=== PATIENT | male | born 1940 | race Caucasian/White ===

== ENCOUNTER 2022-07-18 14:22 | Inpatient (IN) | payer MEDICARE ==
[2022-07-18 14:54] LABS: #Monocytes 0.6 10x3/uL (0.0-1.1); #Neutrophils 5.4 10x3/uL (1.5-8.4); %Basophils 0.2 % (0.0-2.0); %Eosinophils 0.2 % (0.0-6.0); %Lymphocytes 5.1 % (18.0-47.0); %Monocytes 8.9 % (0.0-10.0); %Neutrophils 85.1 % (40.0-75.0); Hemoglobin 8.5 g/dL (13.5-17.5); Mean Corpuscular HGB CONC 32.7 g/dL (32.0-36.0); Mean Corpuscular Hemoglobin 30.4 pg (27.0-33.0); Mean Corpuscular Volume 92.9 fl (81.2-95.1); Mean Platelet Volume 11.2 fl (7.4-10.4); Platelet Count 176 10x3/uL (150-450); White Blood Cell (WBC) Count 6.3 10x3/uL (3.5-10.5)
[2022-07-18] MEDS ORDERED: Aspirin Chewable 81 MG TAB ONE (15:30)
[2022-07-18 15:35] LABS: ALT (SGPT) 12 U/L (8-55); AST (SGOT) 44 U/L (5-34); Albumin 3.9 g/dL (3.4-4.8); Alkaline Phosphatase 25 U/L (40-110); Anion Gap 21 mmol/L (10-20); BUN (Urea Nitrogen) 62 mg/dL (8.4-25.7); Bilirubin, Total 0.5 mg/dL (0.2-1.2); Calc. Creatinine Clearance 0 mL/min (70-130); Calcium 9.1 mg/dL (7.8-10.44); Carbon Dioxide 16 mmol/L (23-31); Chloride 107 mmol/L (98-107); Estimated GFR 15; Globulin 2.9 g/dL (2.4-3.5); Glucose 132 mg/dL (83-110); Potassium 5.3 mmol/L (3.5-5.1); Protein, Total 6.8 g/dL (5.8-8.1); Sodium 139 mmol/L (136-145)
[2022-07-18 15:45] LABS: CKMB 9.3 ng/mL (0-6.6)
[2022-07-18] MEDS ORDERED: Furosemide 40 MG/4 ML VIAL ONE (15:59)
[2022-07-18] MEDS ORDERED: Ondansetron ODT 4 MG TAB PO PRN (16:18)
[2022-07-18] MEDS ORDERED: Acetaminophen 325 MG TAB PO PRN (16:18)
[2022-07-18] MEDS ORDERED: Ondansetron PF 4 MG/2 ML Vial IVP PRN (16:18)
[2022-07-18 16:41] LABS: Magnesium 2.5 mg/dL (1.6-2.6)
[2022-07-18] MEDS ORDERED: Lidocaine 1% PF 5 ML VIAL ONE (19:37)
[2022-07-18] MEDS: hydrALAZINE 25 MG TAB PO SCH (21:15)
[2022-07-19 03:43] LABS: #Monocytes 0.7 10x3/uL (0.0-1.1); #Neutrophils 4.3 10x3/uL (1.5-8.4); %Basophils 0.2 % (0.0-2.0); %Eosinophils 0.4 % (0.0-6.0); Hemoglobin 7.7 g/dL (13.5-17.5); Mean Corpuscular HGB CONC 33.8 g/dL (32.0-36.0); Mean Corpuscular Hemoglobin 30.6 pg (27.0-33.0); Mean Corpuscular Volume 90.5 fl (81.2-95.1); Mean Platelet Volume 11.1 fl (7.4-10.4); Platelet Count 161 10x3/uL (150-450); RBC Distribution Width 12.8 % (11.5-14.5); Red Blood Cell (RBC) Count 2.52 10x6/uL (4.32-5.72); White Blood Cell (WBC) Count 5.5 10x3/uL (3.5-10.5)
[2022-07-19 04:01] LABS: ALT (SGPT) 13 U/L (8-55); AST (SGOT) 48 U/L (5-34); Albumin 3.7 g/dL (3.4-4.8); Alkaline Phosphatase 24 U/L (40-110); Anion Gap 18 mmol/L (10-20); BUN (Urea Nitrogen) 28 mg/dL (8.4-25.7); Bilirubin, Total 0.7 mg/dL (0.2-1.2); Calc. Creatinine Clearance 0 mL/min (70-130); Calcium 9.1 mg/dL (7.8-10.44); Carbon Dioxide 22 mmol/L (23-31); Chloride 102 mmol/L (98-107); Estimated GFR 31; Globulin 3.1 g/dL (2.4-3.5); Glucose 76 mg/dL (83-110); Potassium 3.8 mmol/L (3.5-5.1); Protein, Total 6.8 g/dL (5.8-8.1); Sodium 138 mmol/L (136-145)
[2022-07-19] MEDS: Mirtazapine 15 MG TAB PO SCH (10:09)
[2022-07-19] MEDS: hydrALAZINE 25 MG TAB PO SCH ×3 (10:09→21:43)
[2022-07-19] MEDS: Aspirin Chewable 81 MG TAB PO SCH (10:10)
[2022-07-19] MEDS: Amlodipine 10 MG TAB PO SCH (10:10)
[2022-07-19] MEDS: Furosemide 40 MG/4 ML VIAL SLOW IVP SCH ×2 (10:10→16:58)
[2022-07-19] MEDS: Fenofibrate Nanocrystallized 145 MG TAB PO SCH (12:51)
[2022-07-19] MEDS: Doxazosin 2 MG TAB PO SCH (12:51)
[2022-07-19 14:24] LABS: HBSAB Concentration Less than 8.00 mIU/mL; HBSAg Index 0.26 S/CO (0-0.99); Hep B Core Total Ab Non-Reactive (NonReactive); Hep B Core Total Index 0.18 S/CO (0-0.79); Hep B Surf AB Non-Reactive (NonReactive); Hep B Surf Ag Non-Reactive S/CO (NonReactive); Hep C IgG Ab Non-Reactive (NonReactive); Hep C Index 0.24 S/CO (0-0.79)
[2022-07-20 04:17] LABS: #Monocytes 0.6 10x3/uL (0.0-1.1); #Neutrophils 3.8 10x3/uL (1.5-8.4); %Basophils 0.4 % (0.0-2.0); %Eosinophils 0.8 % (0.0-6.0); %Lymphocytes 12.4 % (18.0-47.0); %Monocytes 12.2 % (0.0-10.0); %Neutrophils 73.8 % (40.0-75.0); Hemoglobin 8.1 g/dL (13.5-17.5); Mean Corpuscular HGB CONC 32.8 g/dL (32.0-36.0); Mean Corpuscular Hemoglobin 30.2 pg (27.0-33.0); Mean Corpuscular Volume 92.2 fl (81.2-95.1); Mean Platelet Volume 11.2 fl (7.4-10.4); Platelet Count 176 10x3/uL (150-450); RBC Distribution Width 12.8 % (11.5-14.5); Red Blood Cell (RBC) Count 2.68 10x6/uL (4.32-5.72); White Blood Cell (WBC) Count 5.1 10x3/uL (3.5-10.5)
[2022-07-20 04:37] LABS: ALT (SGPT) 15 U/L (8-55); AST (SGOT) 62 U/L (5-34); Albumin 3.4 g/dL (3.4-4.8); Alkaline Phosphatase 26 U/L (40-110); Anion Gap 17 mmol/L (10-20); BUN (Urea Nitrogen) 19 mg/dL (8.4-25.7); Bilirubin, Total 0.8 mg/dL (0.2-1.2); Calc. Creatinine Clearance 24 mL/min (70-130); Calcium 8.5 mg/dL (7.8-10.44); Carbon Dioxide 24 mmol/L (23-31); Chloride 101 mmol/L (98-107); Estimated GFR 34; Globulin 2.5 g/dL (2.4-3.5); Glucose 74 mg/dL (83-110); Potassium 3.9 mmol/L (3.5-5.1); Protein, Total 5.9 g/dL (5.8-8.1); Sodium 138 mmol/L (136-145)
[2022-07-20 05:11] LABS: CKMB 7.4 ng/mL (0-6.6)
[2022-07-20] MEDS: Furosemide 40 MG/4 ML VIAL SLOW IVP SCH ×2 (06:23→14:46)
[2022-07-20] MEDS: Mirtazapine 15 MG TAB PO SCH (09:06)
[2022-07-20] MEDS: hydrALAZINE 25 MG TAB PO SCH ×2 (09:06→14:43)
[2022-07-20] MEDS: Aspirin Chewable 81 MG TAB PO SCH (09:06)
[2022-07-20] MEDS: Amlodipine 10 MG TAB PO SCH (09:07)
[2022-07-20] MEDS: Doxazosin 2 MG TAB PO SCH (09:08)
[2022-07-20] MEDS: Fenofibrate Nanocrystallized 145 MG TAB PO SCH (09:08)
[2022-07-20 11:35] VITALS: BMI 19.3
[2022-07-20 17:33] VITALS: BP 126/59; TEMP 98
== END 2022-07-20 17:30 | disposition hospice, home (50) | DRG 280 ==
LOC: CSHERS 14:22 → CSHERHOLD 23:08 → CSHTELE 07-19 07:34
PROVIDERS: ADMIT Internal Medicine; ATTEND Family Medicine
PROC: 02HV33Z Insertion of Infusion Device into Superior Vena Cava, Percutaneous Approach (ICD-10-PCS; principal; 2022-07-18)
PROC: 5A1D70Z Performance of Urinary Filtration, Intermittent, Less than 6 Hours Per Day (ICD-10-PCS; 2022-07-18)
DX: I13.2 Hypertensive heart and chronic kidney disease with heart failure and with stage 5 chronic kidney disease, or end stage renal disease (principal); I50.31 Acute diastolic (congestive) heart failure; I21.4 Non-ST elevation (NSTEMI) myocardial infarction; J96.01 Acute respiratory failure with hypoxia; N18.6 End stage renal disease; N17.9 Acute kidney failure, unspecified; E87.20 Acidosis, unspecified; Z66 Do not resuscitate; Z51.5 Encounter for palliative care; E87.5 Hyperkalemia; D63.1 Anemia in chronic kidney disease; Z87.891 Personal history of nicotine dependence; Z98.41 Cataract extraction status, right eye; Z98.42 Cataract extraction status, left eye; Z79.899 Other long term (current) drug therapy
CPT/HCPCS: 36415; 36416; 70450; 71045; 72125; 72128; 72131; 80053; 82553; 83735; 83880; 84443; 84484; 85025; 86704; 90935; 93005; 93010; 93306; 93923; 93970; 94660; 94760; 96374; 97139; G0257; J1940